=== PATIENT | female | born 1990 | race Asian ===

== ENCOUNTER 2018-09-09 20:40 | Emergency (ER) | payer OTHER ==
[~2018-09-09] VITALS: Ht 162.6 cm; Wt 68.0 kg
[2018-09-09 20:46] VITALS: BP 133/62
--- NOTE | 2018-09-09 20:52 | NUR ---
PT AMBULATED TO ED [facility]
--- NOTE | 2018-09-09 21:39 | NUR ---
PT PRESENTS TO ED WITH SEVERE THROBBING LEFT SIDED WU X4 HRS WITH N/V. VSS. POSITIONED IN BED FOR COMFORT. A&OX4. STEADY GATE. NEURO CHECK INTACT. ER MD AWARE. ACCOMPANIED BY FAMILY. CONTINUE TO MONITOR.
--- NOTE | 2018-09-09 21:39 | NUR ---
PATIENT AMBULATED TO ER BED 9.
[2018-09-09 22:02] LABS: BASOPHILS # (AUTO) 0.1 K/uL (0.00-0.22); BASOPHILS % (AUTO) 0.6 % (0.0-2.0); EOSINOPHILS % (AUTO) 0.2 % (0.0-4.0); HEMATOCRIT 39.2 % (36-48); HEMOGLOBIN 12.8 g/dL (12.0-16.0); MEAN CORPUSCULAR HEMOGLOBIN 30 pg (27-31); MEAN CORPUSCULAR HGB CONC 33 g/dL (33-37); MEAN CORPUSCULAR VOLUME 91.6 fL (80-94); MONOCYTES # (AUTO) 0.3 K/uL (0.8-1.0); NEUTROPHILS # (AUTO) 7.8 K/uL (1.8-7.7); NEUTROPHILS % (AUTO) 85.2 % (42.2-75.2); PLATELET COUNT (AUTO) 205 K/uL (140-450); RED BLOOD CELL COUNT(AUTO) 4.28 MIL/uL (4.20-5.40); WHITE BLOOD COUNT (AUTO) 9.1 K/uL (4.8-10.8)
[2018-09-09 22:15] LABS: ANION GAP 10.1 (8-16); CARBON DIOXIDE 30.1 mmol/L (21-32); CREATININE 0.9 mg/dL (0.6-1.3); POTASSIUM 4.2 mmol/L (3.5-5.1)
[2018-09-09 22:22] LABS: ALBUMIN 3.4 g/dL (3.4-5.0); TOTAL BILIRUBIN 0.4 mg/dL (0.0-1.0)
[2018-09-09] MEDS ORDERED: KETOROLAC 30 MG/ML VIAL IM ONE (22:25)
--- NOTE | 2018-09-10 00:05 | NUR ---
PT IN BED RESTING WITH FAMILY AT BEDSDIE. VSS. POSITIONED FOR COMFORT. CONTINUE TO MONITOR.
[2018-09-10 00:37] VITALS: BP 106/77
== END 2018-09-10 00:37 | disposition home or self-care (01) ==
LOC: MED 20:40
DX: R51 Headache (principal); R11.2 Nausea with vomiting, unspecified; Z91.041 Radiographic dye allergy status; Z91.040 Latex allergy status; Z90.49 Acquired absence of other specified parts of digestive tract
CPT/HCPCS: 36415; 70450; 80053; 81025; 83880; 85025; 96372; 99285; J1885

== ENCOUNTER 2018-12-12 17:21 | Emergency (ER) | payer OTHER ==
[~2018-12-12] VITALS: Ht 160 cm; Wt 73.5 kg
[2018-12-12 17:30] VITALS: BP 126/72
--- NOTE | 2018-12-12 17:40 | NUR ---
28F bib self with c/o 10/10 bl lower back pain x 2 day. Patient denies any fall or recent injury. Patient sts pain is chronic. Patient denies any medication today for pain. Patient with steady gait. Pt is aaox4 to person, place, time, and situation. RR are even and unlabored. Patient denies any urinary complaints. NAD. Awaiting er md urrutia. Will continue to monitor.
[2018-12-12] MEDS ORDERED: KETOROLAC 60 MG/2 ML VIAL IM ONE (18:10)
[2018-12-12 18:27] VITALS: BP 126/72
--- NOTE | 2018-12-12 18:28 | NUR ---
Patient discharged with v/s stable. Written and verbal after care instructions given and explained. Patient alert, oriented and verbalized understanding of instructions. Ambulatory with steady gait. All questions addressed prior to discharge. ID band removed. Patient advised to follow up with PMD. Rx of TRAMADOL, ROBAXIN, AND MOTRIN given. Patient educated on indication of medication including possible reaction and side effects. Opportunity to ask questions provided and answered.
== END 2018-12-12 18:28 | disposition home or self-care (01) ==
LOC: MED 17:21
DX: M54.5 Low back pain (principal); Z88.8 Allergy status to other drugs, medicaments and biological substances; Z91.041 Radiographic dye allergy status
CPT/HCPCS: 96372; 99283; J1885

== ENCOUNTER 2019-02-01 07:29 | Emergency (ER) | payer OTHER ==
[~2019-02-01] VITALS: Ht 162.6 cm; Wt 84.0 kg
[2019-02-01 07:30] VITALS: BP 116/74
--- NOTE | 2019-02-01 07:33 | NUR ---
Patient ambulated to bed 4. RN evaluating patient at bedside.
--- NOTE | 2019-02-01 07:35 | NUR ---
BIB SELF WITH C/O MID LOWER BACK PAIN AND DIFFUSE MID LOWER ABD PAIN SINCE YESTERDAY and also c/o right ear pain & sore throt x 3 days. DENIES dysuria, cough , NVD, OR INJURY. SKIN IS PINK/WARM/DRY; AAOX4 WITH EVEN AND STEADY GAIT. PATIENT STATES PAIN OF 10/10 AT THIS TIME. PATIENT POSITIONED FOR COMFORT; HOB ELEVATED; BEDRAILS UP X2; BED DOWN. ER MD MADE AWARE OF PT STATUS.
--- NOTE | 2019-02-01 07:35 | NUR ---
Note undone in EDM - 02/01/19 at 0848 by [email or web address] BIB SELF WITH C/O MID LOWER BACK PAIN AND DIFFUSE MID LOWER ABD PAIN SINCE YESTERDAY and also c/o right ear pain & sore throt x 3 days. DENIES dysurea, cough , NVD, OR INJURY. SKIN IS PINK/WARM/DRY; AAOX4 WITH EVEN AND STEADY GAIT. PATIENT STATES PAIN OF 10/10 AT THIS TIME. PATIENT POSITIONED FOR COMFORT; HOB ELEVATED; BEDRAILS UP X2; BED DOWN. ER MD MADE AWARE OF PT STATUS.
[2019-02-01] MEDS ORDERED: KETOROLAC 60 MG/2 ML VIAL IM ONE (07:40)
--- NOTE | 2019-02-01 07:43 | NUR ---
Dr. Thayer evaluating patient at bedside.
[2019-02-01] MEDS ORDERED: cefTRIAXone 1,000 MG in LIDOCAINE 1% ***ER ONLY *** 2.1 ML IM ONE (07:45)
[2019-02-01] MEDS ORDERED: cefTRIAXone 1,000 MG VIAL ONE (08:00)
[2019-02-01] MEDS ORDERED: LIDOCAINE MPF 1% 5mL VIAL ONE (08:01)
[2019-02-01 08:05] LABS: APPEARANCE,URINE CLOUDY (CLEAR); BILIRUBIN,URINE NEGATIVE (NEGATIVE); BLOOD, URINE TRACE-I (NEGATIVE); COLOR,URINE YELLOW (YELLOW); LEUKOCYTE ESTERASE ,URINE TRACE (NEGATIVE); NITRITE, URINE NEGATIVE (NEGATIVE); UGLUCOSE NEGATIVE (NEGATIVE)
[2019-02-01 08:20] LABS: WBC,URINE 0-5 /HPF (0-5)
[2019-02-01 09:21] VITALS: BP 117/60
--- NOTE | 2019-02-01 09:21 | NUR ---
Patient discharged with v/s stable. Written and verbal after care instructions given and explained. Patient alert, oriented and verbalized understanding of instructions. Ambulatory with steady gait. All questions addressed prior to discharge. ID band removed. Patient advised to follow up with PMD. Rx of VOLTAREN & BACTRIM given. Patient educated on indication of medication including possible reaction and side effects. Opportunity to ask questions provided and answered.
== END 2019-02-01 09:21 | disposition home or self-care (01) ==
LOC: MED 07:29
DX: N30.90 Cystitis, unspecified without hematuria (principal); J03.90 Acute tonsillitis, unspecified; M54.5 Low back pain; Z91.041 Radiographic dye allergy status; Z91.040 Latex allergy status
CPT/HCPCS: 81001; 81025; 96372; 99283; J0696; J1885; J2001